=== PATIENT | female | born 1990 | race Two or more races ===

== ENCOUNTER 2024-08-29 19:48 | Emergency (ER) | payer MEDICAID, OTHER ==
[~2024-08-29] VITALS: Ht 175.3 cm; Wt 103.6 kg
[2024-08-29 21:23] VITALS: BP 123/69; PULSE 66; RESP 16; TEMP 98.1; O2SAT 100
== END 2024-08-29 21:28 | disposition home or self-care (01) ==
LOC: ER 19:48
DX: S09.8XXA Other specified injuries of head, initial encounter (principal); Z48.02 Encounter for removal of sutures; Z98.84 Bariatric surgery status; Z90.89 Acquired absence of other organs; Z98.890 Other specified postprocedural states; W18.39XA Other fall on same level, initial encounter; Y93.89 Activity, other specified; Y92.89 Other specified places as the place of occurrence of the external cause; Y99.8 Other external cause status
CPT/HCPCS: 70450